=== PATIENT | female | born 1935 | race Caucasian/White ===

== ENCOUNTER 2016-12-07 19:44 | Inpatient (IN) | payer MEDICARE ==
[2016-12-07] MEDS ORDERED: ACETAMINOPHEN IV (For NPO) 1,000 MG in EMPTY BAG 1 BAG IVPB STA (20:14)
[2016-12-07] MEDS: SODIUM CHLORIDE 0.9% 500 ML IV SCH ×3 (20:15→21:15)
--- NOTE | 2016-12-07 20:42 | ED ---
Altered Mental Status HPI <Slim Gamboa - Last Filed: 12/07/16 21:55> - General Source: family, EMS, RN notes reviewed Mode of arrival: EMS Limitations: altered mental status, physical limitation <Raul Barney - Last Filed: 12/07/16 22:01> - General Stated Complaint: Possible Sepsis Time Seen by Provider: 12/07/16 19:59 - History of Present Illness Initial Comments: This an 81-year-old female presents emergency Department from [facility] for possible sepsis. Patient was sent here for concerns of fever, possible UTI. Patient has had a fever with foul odor urine. Patient's history is limited as she is in some/dementia patient. Patient is nonverbal. Patient does have a history of seizures, Parkinson's, hyperlipidemia, hypertension, CHF , CAD. Patient has not had any recent Tylenol Motrin. Patient does have a history of A. fib and is normally in A. fib. (Raul Barney) - Related Data Home Medications Medication Instructions Recorded Confirmed Carbidopa-Levodopa 25-100 mg 1 tab PO TID@0800,1399,199902/21/14 12/07/16 [Sinemet 25-100 mg] Levothyroxine Sodium [Synthroid] 50 mcg PO DAILY@00 02/21/14 12/07/16 Phenytoin Sodium Extended 100 mg PO BID@799,199902/21/14 12/07/16 [Dilantin] Polyethylene Glycol 3350 [Miralax] 17 gm PO Q72H PRN 02/21/14 12/07/16 Sennosides/Docusate Sodium 1 tab PO DAILY@0800 02/21/14 12/07/16 [Docusate Sodium-Senna Tablet] traZODone HCL [Desyrel] 50 mg PO HS@199902/21/14 12/07/16 Lisinopril [Zestril] 10 mg PO DAILY@0800 07/08/14 12/07/16 Docusate [Colace] 100 mg PO BID@08,199903/24/15 12/07/16 Famotidine [Pepcid] 20 mg PO DAILY@0800 03/24/15 12/07/16 LORazepam [Ativan] 1 mg PO BID PRN 03/24/15 12/07/16 Magnesium Hydroxide [Milk of 7,200 mg PO DAILY PRN 03/24/15 12/07/16 Magnesia Concentrate] Metoprolol Tartrate [Lopressor] 25 mg PO BID@0800,2000 03/24/15 12/07/16 Phenytoin Chew [Dilantin Chew] 50 mg PO DAILY@1400 04/04/15 12/07/16 Rivaroxaban [Xarelto] 15 mg PO DAILY@0800 04/04/15 12/07/16 Sm Tussin 100mg/5ml Liquid 200 mg PO Q4H PRN 04/04/15 12/07/16 Acetaminophen [Tylenol] 650 mg PO Q4H PRN 12/07/16 12/07/16 Divalproex Sodium [Divalproex 250 mg PO DAILY 12/07/16 12/07/16 Sodium ER] LORazepam [Ativan] 1.5 mg PO DAILY@0200 PRN 12/07/16 12/07/16 Megestrol Acetate 40mg/1ml 10 ml PO BID 12/07/16 12/07/16 Omeprazole 20 mg PO DAILY 12/07/16 12/07/16 Sertraline HCl [Zoloft] 100 mg PO DAILY 12/07/16 12/07/16 Allergies Allergy/AdvReac Type Severity Reaction Status Date / Time adhesive Allergy Unknown Verified 12/07/16 20:37 alprazolam [From Xanax] Allergy Unknown Verified 12/07/16 20:37 codeine Allergy Unknown Verified 12/07/16 20:37 Penicillins Allergy Unknown Verified 12/07/16 20:37 propoxyphene Allergy Unknown Verified 12/07/16 20:37 Sulfa (Sulfonamide Allergy Unknown Verified 12/07/16 20:37 Antibiotics) DIPHENYLHEPTANE Allergy Unknown Uncoded 12/07/16 20:37 NARCOTICS Allergy Unknown Uncoded 12/07/16 20:37 Review of Systems ROS Other: All systems not noted in ROS Statement are negative. <Slim Gamboa - Last Filed: 12/07/16 21:55> ROS Other: All systems not noted in ROS Statement are negative. <Raul Barney - Last Filed: 12/07/16 22:01> ROS Statement: Those systems with pertinent positive or pertinent negative responses have been documented in the HPI. Past Medical History Past Medical History: Atrial Fibrillation, Heart Failure, CVA/TIA, Dementia, GERD/Reflux, Hyperlipidemia, Hypertension, Osteoarthritis (OA), Thyroid Disorder Additional Past Medical History / Comment(s): PT CURRENTLY RESIDES AT [facility]. PT IS A POOR HISTORIAN AND UNABLE TO GIVE OWN MEDICAL HISTORY.HX OBTAINED FROM SON/DAUGHTER. 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 METABOLIC ENCEPHALOPATHY, OSTEOPOROSIS AND BRONCHIECTASIS.CONSTIPATION-TAKES STOOL SOFTENER-LAST BM (LARGE ON 8TH AND 9TH) , UTI 4-5-15 E-COLI, ARM FX AND CARMELITA HIP (HAD SX), pt had a stroke 2 yrs History of Any Multi-Drug Resistant Organisms: None Reported Past Surgical History: Appendectomy, Hysterectomy Additional Past Surgical History / Comment(s): BILATERAL EAR SURGERY, FAMILY NO SURE WHICH ARM HAS PLATE/SCREWS, CARMELITA HIP SX HAS METAL IN [place] Past Anesthesia/Blood Transfusion Reactions: No Reported Reaction Past Psychological History: Anxiety Smoking Status: Never smoker Past Alcohol Use History: None Reported Past Drug Use History: None Reported - Past Family History Father Family Medical History: Renal Disease Additional Family Medical History / Comment(s): FATHER OF RENAL DX. HE WAS ON DIALYSIS. Mother Family Medical History: Unable to Obtain, Liver Disease <Raul Barney - Last Filed: 12/07/16 22:01> General Exam Limitations: altered mental status, physical limitation General appearance: alert, in no apparent distress Head exam: Present: atraumatic, normocephalic, normal inspection ENT exam: Present: normal oropharynx Neck exam: Present: normal inspection. Absent: tenderness, meningismus, lymphadenopathy Respiratory exam: Present: decreased breath sounds. Absent: normal lung sounds bilaterally, respiratory distress, wheezes, rales, rhonchi, stridor Cardiovascular Exam: Present: tachycardia, irregular rhythm, normal heart sounds. Absent: normal rhythm, systolic murmur, diastolic murmur, rubs, gallop , clicks GI/Abdominal exam: Present: soft, normal bowel sounds. Absent: distended, tenderness, guarding, rebound, rigid Neurological exam: Present: alert. Absent: oriented X3 Skin exam: Present: warm, dry, intact, normal color. Absent: rash <Raul Barney - Last Filed: 12/07/16 22:01> Course <Slim Gamboa - Last Filed: 12/07/16 21:55> <Raul Barney - Last Filed: 12/07/16 22:01> Vital Signs 12/07/16 12/07/16 12/07/16 19:50 20:15 20:51 Temperature 101.7 F H Pulse Rate 133 H 142 H Pulse Rate [ 142 H Turbine Mechanic ] Respiratory 16 20 Rate Blood Pressure 156/65 145/70 O2 Sat by Pulse 88 L 92 L Oximetry 12/07/16 21:54 Temperature 100.6 F H Pulse Rate 92 Pulse Rate [ Turbine Mechanic ] Respiratory 20 Rate Blood Pressure 105/67 O2 Sat by Pulse 96 Oximetry - Reevaluation(s) Reevaluation #1: 12/07/16 20:42 Family did presents emergency Department and states that they do not want extreme measures with the patient that she is a no code and wanted comfort measures. (Raul Barney) Medical Decision Making - Lab Data Result diagrams: 12/07/16 20:10 12/07/16 20:10 <Slim Gamboa - Last Filed: 12/07/16 21:55> - Lab Data Result diagrams: 12/07/16 20:10 12/07/16 20:10 <Raul Barney - Last Filed: 12/07/16 22:01> - Medical Decision Making Medical decision making; patient's multiple medical problems. The patient was brought emergency room today because of a fever, 11.7. The patient has not been communicative since a stroke. Daughter at bedside states the patient is a no code. Vital signs today found temperature 11.7 pulse elevated 142 respiratory rate 20 pulse ox 92% on 2 L nasal cannula. Her blood pressure 145/ 70. Labs show white count of 22 hemoglobin 12 hematocrit 37 with an INR 1.1. Potassium 4.9 renal insufficiency with a BUN of 36 creatinine 1.3 and a GFR of 39. Plasma lactic acid elevated 3.2. Patient received 1/2 L of IV normal saline for A. fib with RVR of 140 as well as Tylenol heart rate stayed up the patient's receiving Cardizem 10 with IV drip to follow. The daughter at bedside confirm that her mother is a no code comfort only and treat the and once as presented. I discussed the case with Dr. Vines on-call for Dr. De Leon. Patient be admitted to Dr. De Leon's service. The patient will be admitted to the selective service. Dr. Gamboa (Slim Gamboa) - Lab Data Lab Results 12/07/16 12/07/16 12/07/16 Range/Units 20:10 20:10 20:10 WBC 22.3 H (3.8-10.6) k/uL RBC 3.75 L (3.80-5.40) m/uL Hgb 12.1 (11.4-16.0) gm/dL Hct 37.3 (34.0-46.0) % MCV 99.5 (80.0-100.0) fL MCH 32.2 (25.0-35.0) pg MCHC 32.3 (31.0-37.0) g/dL RDW 13.4 (11.5-15.5) % Plt Count 321 (150-450) k/uL Neutrophils % 92 % Lymphocytes % 3 % Monocytes % 4 % Eosinophils % 0 % Basophils % 0 % Neutrophils # 20.6 H (1.3-7.7) k/uL Lymphocytes # 0.7 L (1.0-4.8) k/uL Monocytes # 0.9 (0-1.0) k/uL Eosinophils # 0.0 (0-0.7) k/uL Basophils # 0.0 (0-0.2) k/uL PT (9.0-12.0) sec INR (<1.2) APTT (22.0-30.0) sec Sodium 146 H (137-145) mmol/L Potassium 4.9 (3.5-5.1) mmol/L Chloride 111 H (98-107) mmol/L Carbon Dioxide 23 (22-30) mmol/L Anion Gap 12 mmol/L BUN 36 H (7-17) mg/dL Creatinine 1.30 H (0.52-1.04) mg/dL Est GFR (MDRD) Af Amer 48 (>60 ml/min/1.73 sqM) Est GFR (MDRD) Non-Af 39 (>60 ml/min/1.73 sqM) Glucose 127 H (74-99) mg/dL Plasma Lactic Acid [place] (0.7-2.0) mmol/L Calcium 9.1 (8.4-10.2) mg/dL Total Bilirubin 0.6 (0.2-1.3) mg/dL AST 40 H (14-36) U/L ALT 31 (9-52) U/L Alkaline Phosphatase 87 (38-126) U/L Total Creatine Kinase 176 H (30-135) U/L CK-MB (CK-2) 2.3 (0.0-2.4) ng/mL CK-MB (CK-2) Rel Index 1.3 Troponin I 0.036 H* (0.000-0.034) ng/mL Total Protein 6.8 (6.3-8.2) g/dL Albumin 3.9 (3.5-5.0) g/dL Urine Color Urine Appearance (Clear) Urine pH (5.0-8.0) Ur Specific [place] (1.001-1.035) Urine Protein (Negative) Urine Glucose (UA) (Negative) Urine Ketones (Negative) Urine Blood (Negative) Urine Nitrite (Negative) Urine Bilirubin (Negative) Urine Urobilinogen (<2.0) mg/dL Ur Leukocyte Esterase (Negative) Urine RBC (0-5) /hpf Urine WBC (0-5) /hpf Urine WBC Clumps (None) /hpf Urine Bacteria (None) /hpf Urine Mucus (None) /hpf Phenytoin 8.6 ug/mL Valproic Acid 13.7 ug/mL 12/07/16 12/07/16 12/07/16 Range/Units 20:10 20:10 20:15 WBC (3.8-10.6) k/uL RBC (3.80-5.40) m/uL Hgb (11.4-16.0) gm/dL Hct (34.0-46.0) % MCV (80.0-100.0) fL MCH (25.0-35.0) pg MCHC (31.0-37.0) g/dL RDW (11.5-15.5) % Plt Count (150-450) k/uL Neutrophils % % Lymphocytes % % Monocytes % % Eosinophils % % Basophils % % Neutrophils # (1.3-7.7) k/uL Lymphocytes # (1.0-4.8) k/uL Monocytes # (0-1.0) k/uL Eosinophils # (0-0.7) k/uL Basophils # (0-0.2) k/uL PT 10.8 (9.0-12.0) sec INR 1.1 (<1.2) APTT 21.1 L (22.0-30.0) sec Sodium (137-145) mmol/L Potassium (3.5-5.1) mmol/L Chloride (98-107) mmol/L Carbon Dioxide (22-30) mmol/L Anion Gap mmol/L BUN (7-17) mg/dL Creatinine (0.52-1.04) mg/dL Est GFR (MDRD) Af Amer (>60 ml/min/1.73 sqM) Est GFR (MDRD) Non-Af (>60 ml/min/1.73 sqM) Glucose (74-99) mg/dL Plasma Lactic Acid Byron 3.2 H* (0.7-2.0) mmol/L Calcium (8.4-10.2) mg/dL Total Bilirubin (0.2-1.3) mg/dL AST (14-36) U/L ALT (9-52) U/L Alkaline Phosphatase (38-126) U/L Total Creatine Kinase (30-135) U/L CK-MB (CK-2) (0.0-2.4) ng/mL CK-MB (CK-2) Rel Index Troponin I (0.000-0.034) ng/mL Total Protein (6.3-8.2) g/dL Albumin (3.5-5.0) g/dL Urine Color Dark Yellow Urine Appearance Turbid H (Clear) Urine pH 5.5 (5.0-8.0) Ur Specific [place] 1.020 (1.001-1.035) Urine Protein 2+ H (Negative) Urine Glucose (UA) Negative (Negative) Urine Ketones Trace H (Negative) Urine Blood Small H (Negative) Urine Nitrite Negative (Negative) Urine Bilirubin Negative (Negative) Urine Urobilinogen 2.0 (<2.0) mg/dL Ur Leukocyte Esterase Large H (Negative) Urine RBC 30 H (0-5) /hpf Urine WBC >182 H (0-5) /hpf Urine WBC Clumps Many H (None) /hpf Urine Bacteria Occasional H (None) /hpf Urine Mucus Many H (None) /hpf Phenytoin ug/mL Valproic Acid ug/mL 12/07/16 21:01 EKG performed at 20:20 4H or fibrillation with RVR, left axis deviation rate of 134 QRS duration 72 QT/QTC 312/465 (Raul Barney) Disposition <Slim Gamboa - Last Filed: 12/07/16 21:55> <Raul Barney - Last Filed: 12/07/16 22:01> Clinical Impression: UTI (urinary tract infection), Sepsis, Atrial fibrillation with RVR, Dementia, Dehydration Disposition: ADMITTED IP TO THIS HOSP Condition: Fair Referrals: Filiberto De Leon MD [Primary Care Provider] - 1-2 days
[2016-12-07 20:50] LABS: Basophils % (A) 0 %; CH 32.7; Eosinophils % (A) 0 %; HCT 37.3 % (34.0-46.0); HDW 2.06; HGB 12.1 gm/dL (11.4-16.0); Luc % (Auto) 1; Lymphocytes # (A) 0.7 k/uL (1.0-4.8); Lymphocytes % (A) 3 %; MCH 32.2 pg (25.0-35.0); MCHC 32.3 g/dL (31.0-37.0); MCV 99.5 fL (80.0-100.0); Mean Platelet Volume 8.2; Monocytes # (A) 0.9 k/uL (0-1.0); Monocytes % (A) 4 %; Neutrophils # (A) 20.6 k/uL (1.3-7.7); Neutrophils % (A) 92 %; RBC 3.75 m/uL (3.80-5.40); RDW 13.4 % (11.5-15.5); WBC 22.3 k/uL (3.8-10.6); WBC (Perox) 22.73
[2016-12-07 20:54] LABS: Appearance,Urine Turbid (Clear); Bacteria,Urine Occasional /hpf; Bilirubin,Urine Negative (Negative); Glucose,Urine (UA) Negative (Negative); Ketones,Urine Trace (Negative); Leukocyte Esterase,Urine Large (Negative); Mucus,Urine Many /hpf; Nitrite,Urine Negative (Negative); PH, Urine 5.5 (5.0-8.0); Particle Count 53086; Protein,Urine 2+ (Negative); RBC,Urine 30 /hpf (0-5); UA Billing (MACRO vs. MICRO) MICRO; WBC,Urine >182 /hpf (0-5)
[2016-12-07] MEDS ORDERED: LEVOFLOXACIN 750MG-D5W PMX 750 MG in DEXTROSE/WATER 1 150ML.BAG IVPB STA (20:59)
[2016-12-07 21:00] LABS: Calcium 9.1 mg/dL (8.4-10.2); INR 1.1 (<1.2); Potassium 4.9 mmol/L (3.5-5.1); Prothrombin Time 10.8 sec (9.0-12.0); Total Bilirubin 0.6 mg/dL (0.2-1.3); Total Protein 6.8 g/dL (6.3-8.2)
[2016-12-07 21:16] LABS: Partial Thromboplastin Time 21.1 sec (22.0-30.0)
[2016-12-07] MEDS ORDERED: DILTIAZEM 5 MG/ML 5 ML VIAL IVP STA (21:25)
[2016-12-07 21:30] LABS: Creatine Kinase MB 2.3 ng/mL (0.0-2.4)
--- NOTE | 2016-12-07 21:41 | XR ---
EXAMINATION TYPE: XR chest 2V DATE OF EXAM: 12/07/2016 COMPARISON: NONE INDICATION: Fever TECHNIQUE: Frontal and lateral views of the chest are obtained. FINDINGS: The heart size is normal. The pulmonary vasculature is normal. There is some mild increased lung markings which appear diffuse and nonspecific. A suspicious focal c onsolidation is not identified.. Previous left pleural effusion is resolved. IMPRESSION: 1. Mild increased lung markings may be chronic in nature. No suspicious acute changes evident
[2016-12-07 21:42] LABS: Troponin I 0.036 ng/mL (0.000-0.034)
[2016-12-07] MEDS ORDERED: NALOXONE 0.4 MG/ML 1 ML VIAL IV PRN (22:02)
[2016-12-07] MEDS ORDERED: POLYETHYLENE GLYCOL 3350 17 GM POWD.PACK PO PRN (22:03)
[2016-12-07] MEDS ORDERED: LORazepam 1 MG TAB PO PRN (22:03)
[2016-12-07] MEDS ORDERED: MAGNESIUM HYDROXIDE 2,400 MG/10 ML CUP PO PRN (22:03)
[2016-12-07] MEDS: SODIUM CHLORIDE 0.9% 1,000 ML IV SCH (23:53)
[2016-12-08] MEDS ORDERED: LORazepam 1 MG TAB PO PRN (02:00)
[2016-12-08] MEDS: PANTOPRAZOLE 40 MG TABLET PO SCH (06:28)
[2016-12-08] MEDS ORDERED: METOPROLOL TARTRATE 25 MG TAB PO SCH (08:00)
[2016-12-08] MEDS: CARBIDOPA-LEVODOPA 25-100 MG 1 EACH TAB PO SCH ×3 (09:36→21:44)
[2016-12-08] MEDS: PHENYTOIN SODIUM EXTENDED 100 MG CAP PO SCH ×2 (09:37→21:44)
[2016-12-08] MEDS: SERTRALINE 100 MG TAB PO SCH (09:37)
[2016-12-08] MEDS: RIVAROXABAN 15 MG TAB PO SCH (09:37)
[2016-12-08] MEDS: LISINOPRIL 10 MG TAB PO SCH (09:37)
[2016-12-08] MEDS: FAMOTIDINE 20 MG TAB PO SCH (09:37)
[2016-12-08] MEDS: SENNOSIDES-DOCUSATE SODIUM 1 EACH TAB PO SCH (09:38)
[2016-12-08] MEDS: MEGESTROL 400 MG/10 ML CUP PO SCH ×2 (09:38→21:44)
[2016-12-08] MEDS: LEVOTHYROXINE 50 MCG TAB PO SCH (09:38)
[2016-12-08] MEDS: DOCUSATE 100 MG CAP PO SCH ×2 (09:39→21:44)
[2016-12-08] MEDS: DIVALPROEX ER 250 MG TAB.ER.24H PO SCH (09:39)
--- NOTE | 2016-12-08 09:40 | P.HPIM ---
History of Present Illness Chief complaint: Altered mental status History of present illness: The patient is a 81-year-old patient who resides [facility] a [facility]. The patient is a patient of Dr. De Leon for whom I am covering. Apparently the patient has had decreasing mental status with apparent more lethargy and decreased responsiveness. And also patient apparently was having temperature and a cloudy foul-smelling urine. Past medical history: Patient apparently has been living in an adult foster penit[facility]iary since a previous stroke. History of atrial fibrillation Dementia Parkinson's disease Hypertension Hypothyroidism Degenerative joint disease Congestive heart failure Gastroesophageal reflux Previous surgeries from her record include appendectomy and hysterectomy along with bilateral ear surgery, bilateral hip surgeries ALLERGIES/adverse reactions: Penicillins and sulfa medications. Codeine and narcotics Adhesive this Xanax Propoxyphene Diphenylheptane Medications: Please refer to list. Carbidopa-levodopa 25-103 times daily Levothyroxine 50 g daily Dilantin 100 mg twice a day MiraLAX 17 g every 3 days as needed Senna stool softener 1 daily Trazodone 50 mg at at bedtime Lisinopril 10 mg daily Colace 100 mg twice a day Pepcid 20 mg daily Ativan 1 mg by mouth when necessary agitation Milk of magnesia daily if needed Lopressor 25 mg twice a day Dilantin 250 mg at 2:00 daily Xarelto 50 mg daily Acetaminophen when necessary Divalproex 250 mg daily Megace 10 mL twice a day Omeprazole 20 mg daily Zoloft 100 mg daily Review of systems: Unobtainable except for history of present illness as patient is nonverbal Family history: From records father of renal disease on dialysis and mother had liver disease. Social history: Once again patient resides in an adult foster penit[facility] locally. Apparently she has never smoked. Physical examination: Axillary temperature was as high as 98 and presently 97.7. Pulse on presentation was irregular and 130 per her EKG and presently 118. Respirations are 16. Blood pressure was as low as 97/52 and now 108/59. She is 100% saturated on 2 L nasal cannula. Patient is nonverbal. She does not appear to be generally aware of things. Head is atraumatic. Neck is generally supple. No carotid bruits or adenopathy palpable. She will not open her eyes to evaluate extraocular movements. Lungs are generally clear. Heart tones are irregularly irregular and slightly tachycardic. No definite murmurs or rubs appreciated. Abdomen is generally soft although she does seem to have some suprapubic discomfort to palpation. No definite masses or organomegaly detected. Extremities revealed no bruising. No edema. No definite palpable breast lesions. Pelvic is deferred. She does have a indwelling Alfaro catheter in place. Patient does not appear to be in any distress. She does appear to have some right-sided facial weakness. She does respond to painful stimuli. Her right arm is in a splint for her IV axis. She does have movement of her right wrist and left arm. Both lower extremities seemed to show increased tone. Plantars were downgoing. Withdrawal reflex present bilaterally. Laboratory results White count elevated at 22.3 with a hemoglobin 12.1 and a platelet count 321. Left shift present with 20.6 neutrophils INR was 1.1 with a PTT of 21.1. Sodium is 146 with a potassium 4.9 and chloride 111 and CO2 content of 23. BUN was 36 with a creatinine 1.3 giving her GFR 39. A blood sugar was 127. A venous lactic acid level initially 3.2 has decreased down to 2.6 CPK was 176 with a troponin of 0.036. Albumin was 3.9. Urinalysis revealed a large amount of leukocyte esterase and greater than 182 white cells with 30 RBCs. Dilantin level was 8.6 with valproic acid 13.7. EKG showing atrial fibrillation with a rapid ventricular response of 134. Left axis deviation and likely septal infarct but no definite acute ischemic changes noted. Chest x-ray showed some increased lung markings which were felt to be chronic in nature without suspicious acute change present. Impressions: 1. This 81-year-old female with a change in mental status with underlying urinary tract infection and likely sepsis and some systemic inflammatory response syndrome resulting in lactic acidosis and acute renal failure stage III. 2. Chronic atrial fibrillation but presenting now with rapid ventricular response likely related to sepsis. 3. Elevated CK and troponin likely related to the sepsis and atrial fibrillation along with the associated renal failure. 4. This patient has underlying neurologic and mental status problems with history of old CVA, dementia, Parkinson disease. 5. Hypertension 6. Hypothyroidism 7. Degenerative joint disease 8. History of congestive heart failure from the record. 9. Previous surgeries as stated in the past medical history. Plans: As discussed with the emergency room physician apparently patient has a poor baseline status. Family wants patient to be a no code, no CPR with no heroic measures. In light of her ALLERGIES she's been placed on Levaquin for her urinary tract infection and is being monitored on selective care. We will increase her metoprolol to hopefully control her atrial fibrillation rate better. We will continue her other baseline medications for her comorbidities and continue with hydration. Awaiting results of her urine cultures which are in process. Overall prognosis is poor in light of the seriousness of her presentation and multiple comorbidities as listed above. Follow-up labs have been ordered for the morning along with thyroid, TSH. Past Medical History Past Medical History: Atrial Fibrillation, Heart Failure, CVA/TIA, Dementia, GERD/Reflux, Hyperlipidemia, Hypertension, Osteoarthritis (OA), Thyroid Disorder Additional Past Medical History / Comment(s): PT CURRENTLY RESIDES AT [facility]. PT IS A POOR HISTORIAN AND UNABLE TO GIVE OWN MEDICAL HISTORY.HX OBTAINED FROM SON/DAUGHTER. 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 METABOLIC ENCEPHALOPATHY, OSTEOPOROSIS AND BRONCHIECTASIS, ARM FX AND CARMELITA HIP (HAD SX) History of Any Multi-Drug Resistant Organisms: None Reported Past Surgical History: Appendectomy, Hysterectomy Additional Past Surgical History / Comment(s): BILATERAL EAR SURGERY, RIGHT ARM HAS PLATE/SCREWS, CARMELITA HIP SX HAS METAL IN PLACE Past Anesthesia/Blood Transfusion Reactions: No Reported Reaction Past Psychological History: Anxiety Additional Psychological History / Comment(s): PT LIVES AT [facility]. SINCE STROKE UNABLE TO AMBULATE BUT FAMILY STATES SHE IS A WIGGLER (WILL PULL OUT IVS AND FALL OUT OF BED).PT IS A FEEDER,NO LONGER READS OR WRITES AND IS INCONT WEARS A BRIEF-ON RISK SCREEN UNABLE TO OBTAIN INFO FROM PT TO DEPRESSION. HER HEALTH POA IS [facility] AT [phone] IS HER [facility]AY[facility]. Smoking Status: Never smoker Past Alcohol Use History: None Reported Past Drug Use History: None Reported - Past Family History Father Family Medical History: Renal Disease Additional Family Medical History / Comment(s): FATHER OF RENAL DX. HE WAS ON DIALYSIS. Mother Family Medical History: Cancer, Liver Disease Medications and Allergies Home Medications Medication Instructions Recorded Confirmed Type Carbidopa-Levodopa 25-100 mg 1 tab PO TID@0800,1400,199902/21/1426/17 History [Sinemet 25-100 mg] Levothyroxine Sodium [Synthroid] 50 mcg PO DAILY@0800 02/21/14 12/07/16 History Phenytoin Sodium Extended 100 mg PO BID@799,199902/21/14 12/07/16 History [Dilantin] Polyethylene Glycol 3350 [Miralax] 17 gm PO Q72H PRN 02/21/14 12/07/16 History Sennosides/Docusate Sodium 1 tab PO DAILY@0802/21/14 12/07/16 History [Docusate Sodium-Senna Tablet] traZODone HCL [Desyrel] 50 mg PO HS@199902/21/14 12/07/16 History Lisinopril [Zestril] 10 mg PO DAILY@0807/08/14 12/07/16 History Docusate [Colace] 100 mg PO BID@799,199903/24/15 12/07/16 History Famotidine [Pepcid] 20 mg PO DAILY@0803/24/15 12/07/16 History LORazepam [Ativan] 1 mg PO BID PRN 03/24/15 12/07/16 History Magnesium Hydroxide [Milk of 7,200 mg PO DAILY PRN 03/24/15 12/07/16 History Magnesia Concentrate] Metoprolol Tartrate [Lopressor] 25 mg PO BID@08,199903/24/15 12/07/16 History Phenytoin Chew [Dilantin Chew] 50 mg PO DAILY@1400 04/04/15 12/07/16 History Rivaroxaban [Xarelto] 15 mg PO DAILY@0800 04/04/15 12/07/16 History Sm Tussin 100mg/5ml Liquid 200 mg PO Q4H PRN 04/04/15 12/07/16 History Acetaminophen [Tylenol] 650 mg PO Q4H PRN 12/07/16 12/07/16 History Divalproex Sodium [Divalproex 250 mg PO DAILY 12/07/16 12/07/16 History Sodium ER] LORazepam [Ativan] 1.5 mg PO DAILY@0200 PRN 12/07/16 12/07/16 History Megestrol Acetate 40mg/1ml 10 ml PO BID 12/07/16 12/07/16 History Omeprazole 20 mg PO DAILY 12/07/16 12/07/16 History Sertraline HCl [Zoloft] 100 mg PO DAILY 12/07/16 12/07/16 History Allergies Allergy/AdvReac Type Severity Reaction Status Date / Time adhesive Allergy Unknown Verified 12/07/16 20:37 alprazolam [From Xanax] Allergy Unknown Verified 12/07/16 20:37 codeine Allergy Unknown Verified 12/07/16 20:37 Penicillins Allergy Unknown Verified 12/07/16 20:37 propoxyphene Allergy Unknown Verified 12/07/16 20:37 Sulfa (Sulfonamide Allergy Unknown Verified 12/07/16 20:37 Antibiotics) DIPHENYLHEPTANE Allergy Unknown Uncoded 12/07/16 20:37 NARCOTICS Allergy Unknown Uncoded 12/07/16 20:37 Physical Exam Vitals: Vital Signs Temp Pulse Pulse Pulse Resp BP BP 12/08/16 04:00 97.7 F 118 H 16 108/59 12/07/16 22:58 98.0 F 109 H 16 12/07/16 22:50 98.0 F 109 H 16 97/52 12/07/16 22:39 99.9 F H 99 20 105/56 12/07/16 22:01 83 20 116/53 12/07/16 21:54 100.6 F H 92 20 105/67 12/07/16 21:25 136 H 20 120/59 12/07/16 20:55 138 H 20 128/78 12/07/16 20:51 142 H 12/07/16 20:15 142 H 20 145/70 12/07/16 19:50 101.7 F H 133 H 16 156/65 Pulse Ox 12/08/16 04:00 100 12/07/16 22:58 94 L 12/07/16 22:50 94 L 12/07/16 22:39 99 12/07/16 22:01 99 12/07/16 21:54 96 12/07/16 21:25 95 12/07/16 20:55 97 12/07/16 20:51 12/07/16 20:15 92 L 12/07/16 19:50 88 L Intake and Output 12/07/16 12/08/16 12/08/16 22:59 06:59 14:59 Output Total 100 Balance -100 Output: Urine 100 Other: Weight 46.266 kg Results CBC & Chem 7: 12/07/16 20:10 12/07/16 20:10 Labs: Abnormal Lab Results - Last 24 Hours (Table) 12/07/16 12/07/16 12/07/16 Range/Units 20:10 20:10 20:10 WBC 22.3 H (3.8-10.6) k/uL RBC 3.75 L (3.80-5.40) m/uL Neutrophils # 20.6 H (1.3-7.7) k/uL Lymphocytes # 0.7 L (1.0-4.8) k/uL APTT (22.0-30.0) sec Sodium 146 H (137-145) mmol/L Chloride 111 H (98-107) mmol/L BUN 36 H (7-17) mg/dL Creatinine 1.30 H (0.52-1.04) mg/dL Glucose 127 H (74-99) mg/dL Plasma Lactic Acid Byron (0.7-2.0) mmol/L AST 40 H (14-36) U/L Total Creatine Kinase 176 H (30-135) U/L Troponin I 0.036 H* (0.000-0.034) ng/mL Urine Appearance (Clear) Urine Protein (Negative) Urine Ketones (Negative) Urine Blood (Negative) Ur Leukocyte Esterase (Negative) Urine RBC (0-5) /hpf Urine WBC (0-5) /hpf Urine WBC Clumps (None) /hpf Urine Bacteria (None) /hpf Urine Mucus (None) /hpf 12/07/16 12/07/16 12/07/16 Range/Units 20:10 20:10 20:15 WBC (3.8-10.6) k/uL RBC (3.80-5.40) m/uL Neutrophils # (1.3-7.7) k/uL Lymphocytes # (1.0-4.8) k/uL APTT 21.1 L (22.0-30.0) sec Sodium (137-145) mmol/L Chloride (98-107) mmol/L BUN (7-17) mg/dL Creatinine (0.52-1.04) mg/dL Glucose (74-99) mg/dL Plasma Lactic Acid Byron 3.2 H* (0.7-2.0) mmol/L AST (14-36) U/L Total Creatine Kinase (30-135) U/L Troponin I (0.000-0.034) ng/mL Urine Appearance Turbid H (Clear) Urine Protein 2+ H (Negative) Urine Ketones Trace H (Negative) Urine Blood Small H (Negative) Ur Leukocyte Esterase Large H (Negative) Urine RBC 30 H (0-5) /hpf Urine WBC >182 H (0-5) /hpf Urine WBC Clumps Many H (None) /hpf Urine Bacteria Occasional H (None) /hpf Urine Mucus Many H (None) /hpf 12/07/16 Range/Units 23:50 WBC (3.8-10.6) k/uL RBC (3.80-5.40) m/uL Neutrophils # (1.3-7.7) k/uL Lymphocytes # (1.0-4.8) k/uL APTT (22.0-30.0) sec Sodium (137-145) mmol/L Chloride (98-107) mmol/L BUN (7-17) mg/dL Creatinine (0.52-1.04) mg/dL Glucose (74-99) mg/dL Plasma Lactic Acid Byron 2.6 H* (0.7-2.0) mmol/L AST (14-36) U/L Total Creatine Kinase (30-135) U/L Troponin I (0.000-0.034) ng/mL Urine Appearance (Clear) Urine Protein (Negative) Urine Ketones (Negative) Urine Blood (Negative) Ur Leukocyte Esterase (Negative) Urine RBC (0-5) /hpf Urine WBC (0-5) /hpf Urine WBC Clumps (None) /hpf Urine Bacteria (None) /hpf Urine Mucus (None) /hpf Microbiology - Last 24 Hours (Table) 12/07/16 20:15 Urine Culture - Preliminary Urine,Clean Catch Thrombosis Risk Factor Assmnt - Choose All That Apply Each Risk Factor Represents 3 Points: Age 75 years or older Thrombosis Risk Factor Assessment Total Risk Factor Score: 3 Thrombosis Risk Factor Assessment Level: Moderate Risk
[2016-12-08] MEDS: METOPROLOL TARTRATE 50 MG TAB PO SCH ×2 (10:30→21:44)
[2016-12-08] MEDS: SODIUM CHLORIDE 0.9% 1,000 ML IV SCH ×2 (15:24→23:14)
[2016-12-08] MEDS: PHENYTOIN 50 MG CHEWABLE PO SCH (15:25)
[2016-12-08] MEDS: traZODone HCL 50 MG TAB PO SCH (21:44)
[2016-12-08] MEDS: LEVOFLOXACIN 500MG-D5W PMX 500 MG in DEXTROSE/WATER 1 100ML.BAG IVPB SCH (21:59)
[2016-12-09 06:57] LABS: Anion Gap 8 mmol/L; Blood Urea Nitrogen 26 mg/dL (7-17); Carbon Dioxide 19 mmol/L (22-30); Chloride 118 mmol/L (98-107); Glucose 85 mg/dL (74-99); Non-African American GFR(MDRD) >60 (>60 ml/min/1.73 sqM); Sodium 145 mmol/L (137-145)
[2016-12-09] MEDS: MEGESTROL 400 MG/10 ML CUP PO SCH ×2 (07:03→17:30)
[2016-12-09] MEDS: PANTOPRAZOLE 40 MG TABLET PO SCH (07:04)
[2016-12-09 07:42] LABS: Basophils % (A) 0 %; CHCM 30.1; Eosinophils % (A) 0 %; HCT 33.4 % (34.0-46.0); HDW 2.04; HGB 10.6 gm/dL (11.4-16.0); Hypochromasia Moderate; Luc # (Auto) 0.19; Luc % (Auto) 1; Lymphocytes # (A) 1.4 k/uL (1.0-4.8); Lymphocytes % (A) 10 %; MCH 32.7 pg (25.0-35.0); MCHC 31.7 g/dL (31.0-37.0); MCV 103.3 fL (80.0-100.0); Macrocytosis Slight; Mean Platelet Volume 8.8; Monocytes # (A) 0.8 k/uL (0-1.0); Monocytes % (A) 6 %; Neutrophils % (A) 82 %; RBC 3.23 m/uL (3.80-5.40); RDW 12.9 % (11.5-15.5); WBC 13.4 k/uL (3.8-10.6)
[2016-12-09] MEDS: RIVAROXABAN 15 MG TAB PO SCH (09:24)
[2016-12-09] MEDS: PHENYTOIN SODIUM EXTENDED 100 MG CAP PO SCH ×2 (09:24→22:48)
[2016-12-09] MEDS: METOPROLOL TARTRATE 50 MG TAB PO SCH ×2 (09:24→22:48)
[2016-12-09] MEDS: CARBIDOPA-LEVODOPA 25-100 MG 1 EACH TAB PO SCH ×3 (09:25→22:48)
[2016-12-09] MEDS: DIVALPROEX ER 250 MG TAB.ER.24H PO SCH (09:25)
[2016-12-09] MEDS: LEVOTHYROXINE 50 MCG TAB PO SCH ×2 (09:34→10:52)
[2016-12-09] MEDS: SERTRALINE 100 MG TAB PO SCH ×2 (09:35→10:53)
[2016-12-09] MEDS: SENNOSIDES-DOCUSATE SODIUM 1 EACH TAB PO SCH ×2 (09:36→10:53)
[2016-12-09] MEDS: FAMOTIDINE 20 MG TAB PO SCH (09:36)
[2016-12-09] MEDS: DOCUSATE 100 MG CAP PO SCH ×3 (09:36→22:48)
[2016-12-09] MEDS: SODIUM CHLORIDE 0.9% 1,000 ML IV SCH ×2 (09:40→21:45)
[2016-12-09] MEDS: LISINOPRIL 10 MG TAB PO SCH (10:53)
[2016-12-09] MEDS ORDERED: ARTIFICIAL TEARS-HYPROMELLOSE DROPS 15 ML BTL BOTH EYES PRN (13:43)
[2016-12-09] MEDS: PANTOPRAZOLE 40 MG/10 ML VIAL IVP SCH (15:57)
[2016-12-09] MEDS: DIGOXIN 250 MCG/ML 2 ML AMP IVP SCH (15:58)
--- NOTE | 2016-12-09 16:22 | CDI ---
In responding to this query, please exercise your independent professional judgment. The [facility] Coding Staff and Clinical Documentation Specialists appreciate your assistance in clarifying documentation, maintaining compliance with coding guidelines, accurately documenting patients condition and capturing severity of illness. The fact that a question is asked does not imply that any particular answer is desired or expected. Communication forms are a method of clarifying documentation and are not made part of the Legal Health Record. Thank you in advance for your clarification. Last Revision, June 2015 Cherri Boswell [address] [facility] [place] [address] Documentation Clarification Form Date: 12/09/2016 3:58:00 PM From: Angella Mims Admit Date: 12/07/2016 10:27:00 PM Patient Name: Bri Ramos Visit Number: [id number] Dr. Filiberto De Leon Altered mental status was documented in the H&P. Patient history/risk factors: Atrial Fibrillation, Parkinsons disease, CHF Clinical Indicators: 12/08/16 H&P:"81-year-old female with a change in mental status with underlying urinary tract infection and likely sepsis and some systemic inflammatory response syndrome resulting in lactic acidosis and acute renal failure stage III. " Labs: WBC 22.3/13.4, Neutrophils 20.6/11, BUN 36/1.3, plasma LA 2.6, t CK 176, Troponin 0.36 U/A: turbid, +2 protein, trace keytones, large leukocyte esterase, 30 RBC, >182 , many WBC clumps, occasional bacterial, many mucus, CX gram neg bacilli CXR: mild increased lung marking may be chronic in nature. Treatment: TX: IVF IV Levaquin 750 mg IVPB In your professional opinion, please clarify the etiology of the altered mental status, if known. Encephalopathy (specify Type and Underlying Medical Illness-metabolic, toxic , anoxic, etc.) Dementia (if know, specify Type and if with/without Behavioral Disturbance) Other condition (please specify) Unable to determine Please document in your progress notes and discharge summary in order to capture severity of illness and risk of mortality. Include clinical findings that support your diagnosis. FYI: Press F11 to launch patient chart. Place X here if this finding has no clinical significance, is not applicable or if you are not able to provide any additional documentation. MTDD
[2016-12-09] MEDS: PHENYTOIN 50 MG CHEWABLE PO SCH (17:30)
[2016-12-09] MEDS ORDERED: ACETAMINOPHEN IVPB PRN (17:53)
[2016-12-09] MEDS: LEVOFLOXACIN 500MG-D5W PMX 500 MG in DEXTROSE/WATER 1 100ML.BAG IVPB SCH (21:45)
[2016-12-09] MEDS ORDERED: DIGOXIN 250 MCG/ML 2 ML AMP IVP ONE (22:11)
[2016-12-09] MEDS: traZODone HCL 50 MG TAB PO SCH (22:48)
[2016-12-10 06:38] LABS: CH 31.9; CHCM 32.7; HDW 2.21; HGB 10.2 gm/dL (11.4-16.0); MCH 32.3 pg (25.0-35.0); Mean Platelet Volume 8.8; RBC 3.17 m/uL (3.80-5.40); RDW 12.9 % (11.5-15.5); WBC 12.9 k/uL (3.8-10.6)
[2016-12-10 07:01] LABS: MCV 97.9 fL (80.0-100.0)
[2016-12-10 07:04] LABS: Anion Gap 6 mmol/L; Blood Urea Nitrogen 21 mg/dL (7-17); Calcium 7.9 mg/dL (8.4-10.2); Carbon Dioxide 20 mmol/L (22-30); Chloride 117 mmol/L (98-107); Glucose 79 mg/dL (74-99); Non-African American GFR(MDRD) >60 (>60 ml/min/1.73 sqM); Potassium 4.4 mmol/L (3.5-5.1); Sodium 143 mmol/L (137-145)
[2016-12-10] MEDS: MEGESTROL 400 MG/10 ML CUP PO SCH ×3 (07:04→16:21)
[2016-12-10] MEDS: CARBIDOPA-LEVODOPA 25-100 MG 1 EACH TAB PO SCH ×5 (08:34→19:59)
[2016-12-10] MEDS: PANTOPRAZOLE 40 MG/10 ML VIAL IVP SCH (08:34)
[2016-12-10] MEDS: DIGOXIN 250 MCG/ML 2 ML AMP IVP SCH (08:35)
[2016-12-10] MEDS: FAMOTIDINE 20 MG TAB PO SCH (08:35)
[2016-12-10] MEDS: SERTRALINE 100 MG TAB PO SCH (08:35)
[2016-12-10] MEDS: DIVALPROEX ER 250 MG TAB.ER.24H PO SCH (08:35)
[2016-12-10] MEDS: PHENYTOIN 50 MG CHEWABLE PO SCH (08:35)
[2016-12-10] MEDS: METOPROLOL TARTRATE 50 MG TAB PO SCH ×2 (08:35→19:59)
[2016-12-10] MEDS: SENNOSIDES-DOCUSATE SODIUM 1 EACH TAB PO SCH (08:35)
[2016-12-10] MEDS: LISINOPRIL 10 MG TAB PO SCH (08:35)
[2016-12-10] MEDS: DOCUSATE 100 MG CAP PO SCH ×2 (08:35→19:59)
[2016-12-10] MEDS: ENOXAPARIN 40 MG/0.4 ML SYRINGE SQ SCH ×2 (08:36→19:58)
[2016-12-10] MEDS: PHENYTOIN SODIUM EXTENDED 100 MG CAP PO SCH ×2 (08:36→19:59)
[2016-12-10] MEDS: LEVOTHYROXINE 50 MCG TAB PO SCH (08:37)
--- NOTE | 2016-12-10 12:47 | PN ---
CHIEF COMPLAINT: Re-evaluation. HISTORY OF PRESENT ILLNESS: An 81-year-old female who was admitted to the hospital with increased obtundation and evidence suggestive of urinary tract infection with sepsis and dehydration. The patient has history of advanced Parkinson's and associated dementia. The patient also has significant physical debility. She has had a previous left hip fracture with ORIF. She has history of paroxysmal atrial fibrillation and previous CVA. The patient is on anticoagulation. REVIEW OF SYSTEM: NEURO: Has some headache. Denies dizziness. CARDIAC: Denies chest pain. RESPIRATORY: Denies shortness of breath. GI: No reported nausea, vomiting, poor inability to swallow. : No symptoms as an IDC. EXTREMITIES: Patient is curled up in bed. Only limited available from the patient. CONSTITUTIONAL: ( ). PHYSICAL EXAMINATION: Elderly female appears at present, fairly comfortable in no distress. Vital signs revealed temperature 98.5, pulse 89, respirations 20, blood pressure 115/70, pulse ox of 95% on room air. HEENT: Normocephalic. NECK: No JVD, oral cavity is dry. Chest is clear to auscultation. CARDIAC: Distant heart sounds S1, S2 with no gallops, systolic murmur 2/6 left sternal border, irregularly irregular rhythm. Abdomen is soft. Bowel sounds are active. EXTREMITIES: Reveal no edema. Left heel slight bruise, medially. Patient is curled up in bed in the position. No sacral decub noted. Urine output is low. Laboratory evaluation reveals white count is down to 13.4 , hemoglobin is 10.6, platelets 237. BUN is 26, creatinine is 0.08 improved. Electrolytes, sodium 145, potassium 4.0, chloride 118, CO2 is 19, thyroid function is in normal range. Urine analysis revealed numerous WBC's and proteus mirabilis in the urine culture. ASSESSMENT: 1. Urinary tract infection with sepsis. 2. Metabolic encephalopathy. 3. Dehydration. 4. Debility. 5. Parkinson's. 6. Paroxysmal atrial fibrillation. 7. Mild to moderate dementia. PLAN: Continue present medical regimen with IV antibiotics and hydration. The patient's bacteremia sensitive, ( ) patient is on. Prognosis remains guarded. She is not able to take medications, her medications will be kept on hold and will give the patient Lovenox in place of the Xarelto. Other oral medications since she is not swallowing well will be put on hold. Patient's condition is discussed with the patient's family who are all at bedside. Prognosis remains guarded. MTDD
[2016-12-10] MEDS: SODIUM CHLORIDE 0.9% 1,000 ML IV SCH ×2 (15:43→19:59)
[2016-12-10] MEDS: LEVOFLOXACIN 250MG-D5W PMX 250 MG in DEXTROSE/WATER 1 50ML.BAG IVPB SCH (19:58)
[2016-12-10] MEDS: traZODone HCL 50 MG TAB PO SCH (19:59)
[2016-12-10] MEDS: FLUCONAZOLE 100 MG TAB PO SCH (19:59)
[2016-12-11] MEDS: MEGESTROL 400 MG/10 ML CUP PO SCH ×2 (06:33→16:55)
[2016-12-11] MEDS ORDERED: METOPROLOL TARTRATE 5 MG/5 ML VIAL IVP ONE (09:08)
[2016-12-11] MEDS: DIGOXIN 250 MCG/ML 2 ML AMP IVP SCH (09:49)
[2016-12-11] MEDS: FAMOTIDINE 20 MG TAB PO SCH (09:50)
[2016-12-11] MEDS: DIVALPROEX ER 250 MG TAB.ER.24H PO SCH (09:50)
[2016-12-11] MEDS: FLUCONAZOLE 100 MG TAB PO SCH (09:50)
[2016-12-11] MEDS: SERTRALINE 100 MG TAB PO SCH (09:50)
[2016-12-11] MEDS: LEVOTHYROXINE 50 MCG TAB PO SCH (09:50)
[2016-12-11] MEDS: DOCUSATE 100 MG CAP PO SCH ×2 (09:50→20:05)
[2016-12-11] MEDS: METOPROLOL TARTRATE 50 MG TAB PO SCH ×2 (09:50→20:05)
[2016-12-11] MEDS: LISINOPRIL 10 MG TAB PO SCH (09:50)
[2016-12-11] MEDS: CARBIDOPA-LEVODOPA 25-100 MG 1 EACH TAB PO SCH ×3 (09:50→20:05)
[2016-12-11] MEDS: SENNOSIDES-DOCUSATE SODIUM 1 EACH TAB PO SCH (09:50)
[2016-12-11] MEDS: PHENYTOIN SODIUM EXTENDED 100 MG CAP PO SCH ×2 (09:50→20:06)
[2016-12-11] MEDS: PANTOPRAZOLE 40 MG/10 ML VIAL IVP SCH (10:22)
[2016-12-11] MEDS: ACETAMINOPHEN TAB 325 MG TAB PO PRN ×2 (10:33→16:53)
--- NOTE | 2016-12-11 12:58 | PN ---
CHIEF COMPLAINT: Reevaluation. HISTORY OF PRESENT ILLNESS: This 81-year-old female was admitted to the hospital with a urinary tract infection with sepsis and dehydration. The patient also had associated obtundation secondary to metabolic encephalopathy due to dehydration and sepsis and underlying dementia. The patient is more alert today. She has history of Parkinson's. She is able to swallow today. The patient's medications were orally resumed. She recognizes show I am. The patient is cooperative. She continues to stay in the position. REVIEW OF SYSTEMS: NEURO: Denies any headaches. PSYCH: Cooperative. CARDIAC: Denies chest pain. RESPIRATORY: Denies shortness of breath. No reported cough. GI: No reported nausea, vomiting, abdominal pain, diarrhea. : No reported hematuria, has an IDC with improving urine output. CONSTITUTIONAL: No further fever after an episode yesterday afternoon. Pleasant female, vital signs reveal patient is afebrile, temperature is 75, respirations 16, blood pressure 113/55, pulse ox is 93% on 2 L. HEENT: Normocephalic. NECK; Decreased range of motion, no JVD. Face reveals some periorbital puffiness. Chest is clear to auscultation. CARDIAC: Normal S1, S2 with no gallops, irregular rhythm, systolic murmur 2/6 left sternal border. Heart rate is controlled. Abdomen is soft. Extremities reveal no edema. Left heel slight ecchymosis. Neurologically, contracted posture with generalized stiffness. More alert and cooperative today. Laboratory assessment: CBC which revealed a white count down to 12.9, hemoglobin is 10.2, platelets 256. Electrolytes are essentially normal. Sodium 146, potassium 4.4, chloride 117, ( ) down to 20, BUN down to 21, creatinine 0.7. Urine culture had proteus mirabilis. ASSESSMENT: 1. Urinary tract infection with sepsis. 2. Dehydration, improving. 3. Metabolic encephalopathy, improving. 4. Dementia. 5. Parkinson's. 6. Coronary artery disease. 7. Atrial fibrillation. 8. History of seizure disorder. PLAN: The patient is stable. Continue present medical regimen. Patient's oral medications have been resumed. The patient's diet to be advanced as tolerated. Continue present medications. Potential discharge home by Friday. [facility]
[2016-12-11] MEDS: RIVAROXABAN 15 MG TAB PO SCH (13:47)
[2016-12-11] MEDS: PHENYTOIN 50 MG CHEWABLE PO SCH (13:47)
[2016-12-11] MEDS: traZODone HCL 50 MG TAB PO SCH (20:05)
[2016-12-11] MEDS: SODIUM CHLORIDE 0.9% 1,000 ML IV SCH ×2 (20:05→23:16)
[2016-12-11] MEDS: LEVOFLOXACIN 250MG-D5W PMX 250 MG in DEXTROSE/WATER 1 50ML.BAG IVPB SCH (20:14)
[2016-12-12] MEDS: MEGESTROL 400 MG/10 ML CUP PO SCH ×2 (06:22→16:04)
[2016-12-12 06:44] LABS: CH 32.5; CHCM 33.3; HCT 30.6 % (34.0-46.0); HDW 2.58; HGB 10.2 gm/dL (11.4-16.0); MCH 32.7 pg (25.0-35.0); MCHC 33.3 g/dL (31.0-37.0); MCV 98.4 fL (80.0-100.0); RBC 3.11 m/uL (3.80-5.40); RDW 13.4 % (11.5-15.5)
[2016-12-12 07:06] LABS: ALT 26 U/L (9-52); AST 26 U/L (14-36); Alkaline Phosphatase 65 U/L (38-126); Anion Gap 9 mmol/L; Blood Urea Nitrogen 10 mg/dL (7-17); Calcium 7.9 mg/dL (8.4-10.2); Carbon Dioxide 19 mmol/L (22-30); Chloride 113 mmol/L (98-107); Glucose 68 mg/dL (74-99); Non-African American GFR(MDRD) >60 (>60 ml/min/1.73 sqM); Potassium 3.5 mmol/L (3.5-5.1); Sodium 141 mmol/L (137-145); Total Bilirubin 0.3 mg/dL (0.2-1.3); Total Protein 5.1 g/dL (6.3-8.2)
[2016-12-12] MEDS ORDERED: FUROSEMIDE 10 MG/ML 2 ML VIAL IV STA ×2 (08:13→16:27)
[2016-12-12] MEDS: LISINOPRIL 10 MG TAB PO SCH (09:08)
[2016-12-12] MEDS: FAMOTIDINE 20 MG TAB PO SCH (09:08)
[2016-12-12] MEDS: CARBIDOPA-LEVODOPA 25-100 MG 1 EACH TAB PO SCH ×3 (09:08→21:07)
[2016-12-12] MEDS: PHENYTOIN SODIUM EXTENDED 100 MG CAP PO SCH ×2 (09:09→21:07)
[2016-12-12] MEDS: DIGOXIN 250 MCG/ML 2 ML AMP IVP SCH (09:10)
[2016-12-12] MEDS: LEVOTHYROXINE 50 MCG TAB PO SCH (09:10)
[2016-12-12] MEDS: SENNOSIDES-DOCUSATE SODIUM 1 EACH TAB PO SCH (09:10)
[2016-12-12] MEDS: PANTOPRAZOLE 40 MG/10 ML VIAL IVP SCH (09:11)
[2016-12-12] MEDS: METOPROLOL TARTRATE 50 MG TAB PO SCH ×2 (09:12→21:07)
[2016-12-12] MEDS: SERTRALINE 100 MG TAB PO SCH (09:12)
[2016-12-12] MEDS: DIVALPROEX ER 250 MG TAB.ER.24H PO SCH (09:16)
[2016-12-12] MEDS: DOCUSATE 100 MG CAP PO SCH ×2 (09:17→21:07)
[2016-12-12] MEDS: SODIUM CHLORIDE 0.9% 1,000 ML IV SCH (09:17)
[2016-12-12] MEDS: FLUCONAZOLE 100 MG TAB PO SCH (11:33)
--- NOTE | 2016-12-12 14:10 | XR ---
EXAMINATION TYPE: XR chest 1V portable DATE OF EXAM: 12/12/2016 COMPARISON: 12/07/2016 HISTORY: Wheezing today TECHNIQUE: Single frontal view of the chest is obtained. FINDINGS: There is a new right peripheral pleural-based density, likely relating to a loculated mode rate right pleural effusion. Moderate pulmonary vascular congestion and interstitial edema are also n oted as well as a layering small left pleural effusion with associated compressive atelectasis. Heart remains mildly enlarged, similar to the prior exam. Osseous demineralization is noted as well as an old healed right distal clavicular fracture. Mild degenerative changes of the thoracic spine are seen . IMPRESSION: 1. New probable loculated right moderate pleural effusion and small layering left pleural effusion wi th associated bibasilar compressive atelectasis. 2. Mild pulmonary vascular congestion and interstitial edema, that could be related to cardiogenic or noncardiogenic fluid overload.
--- NOTE | 2016-12-12 15:12 | PN ---
PROGRESS NOTE Date of Service: CHIEF COMPLAINT: Reevaluation. HISTORY OF PRESENT ILLNESS: This 81-year-old female was admitted in the hospital with fever and altered mental status. The patient has evidence of urinary tract infection with sepsis. She has dehydration, which is improved. The patient has underlying history of seizure disorder and Parkinson's. She also has paroxysmal atrial fibrillation. Actually, she is more alert and was able to take her medications yesterday. REVIEW OF SYSTEMS: Limited. Neuro: Denies headaches. Psych: Cooperative. Cardiac: Denies chest pain. Respiratory: Denies shortness of breath. GI: No reported nausea or vomiting. Appetite is fair. No diarrhea reported. : No reported symptoms. Has IDC. EXTREMITIES: No pain. Constitutional: No fever or chills. PHYSICAL EXAMINATION: Elderly female, appears in no acute distress. Vital signs reveals temperature was 97.6, pulse 98, respirations 18, blood pressure 148/74, pulse of 98% on 2 L. HEENT: Normocephalic. NECK: Supple. No JVD. CHEST: Clear to auscultation. Cardiac: Normal S1, S2 with no gallops. Systolic murmur 2/6 left sternal border. ABDOMEN: Soft. Bowel sounds present. Extremities: No edema. Left heel mild ecchymosis, suspect pressure injury. ASSESSMENT: 1. Urinary tract infection with sepsis. 2. Dehydration, improved. 3. Paroxysmal atrial fibrillation. 4. Dementia. 5. Parkinsonism. PLAN: Continue present medical regimen. Adequate protection being done to prevent pressure on the heel. Patient's condition is guarded. Prognosis is guarded. Son not available to discuss care. We will check again on him tomorrow. Meanwhile, labs in the morning. Continue present management. MMODL / IJN: [id number] /
[2016-12-12] MEDS: PHENYTOIN 50 MG CHEWABLE PO SCH (16:04)
[2016-12-12] MEDS: RIVAROXABAN 15 MG TAB PO SCH (16:04)
[2016-12-12] MEDS: ACETAMINOPHEN TAB 325 MG TAB PO PRN (17:24)
[2016-12-12] MEDS: LEVOFLOXACIN 250MG-D5W PMX 250 MG in DEXTROSE/WATER 1 50ML.BAG IVPB SCH (21:06)
[2016-12-12] MEDS: traZODone HCL 50 MG TAB PO SCH (21:07)
[2016-12-13] MEDS ORDERED: POTASSIUM CHLORIDE 20 MEQ, LIDOCAINE 2% INJ 20 MG in SODIUM CHLORIDE 0.9% 100 ML IVPB SCH ×3
[2016-12-13] MEDS: POTASSIUM CHLORIDE 10 MEQ, LIDOCAINE 2% INJ 10 MG in SODIUM CHLORIDE 0.9% 100 ML IVPB SCH ×4 (00:19→05:15)
[2016-12-13] MEDS: SODIUM CHLORIDE 0.9% 1,000 ML IV SCH ×3 (03:27→15:01)
[2016-12-13] MEDS: MEGESTROL 400 MG/10 ML CUP PO SCH (07:04)
[2016-12-13] MEDS: LISINOPRIL 10 MG TAB PO SCH (08:36)
[2016-12-13] MEDS: SENNOSIDES-DOCUSATE SODIUM 1 EACH TAB PO SCH (08:36)
[2016-12-13] MEDS: CARBIDOPA-LEVODOPA 25-100 MG 1 EACH TAB PO SCH ×2 (08:36→15:02)
[2016-12-13] MEDS: PHENYTOIN SODIUM EXTENDED 100 MG CAP PO SCH (08:36)
[2016-12-13] MEDS: DOCUSATE 100 MG CAP PO SCH (08:37)
[2016-12-13] MEDS: METOPROLOL TARTRATE 50 MG TAB PO SCH (08:37)
[2016-12-13] MEDS: FAMOTIDINE 20 MG TAB PO SCH (08:37)
[2016-12-13] MEDS: SERTRALINE 100 MG TAB PO SCH (08:37)
[2016-12-13] MEDS: DIGOXIN 250 MCG/ML 2 ML AMP IVP SCH (08:37)
[2016-12-13] MEDS: FLUCONAZOLE 100 MG TAB PO SCH (08:37)
[2016-12-13] MEDS: LEVOTHYROXINE 50 MCG TAB PO SCH (08:46)
[2016-12-13] MEDS: PANTOPRAZOLE 40 MG/10 ML VIAL IVP SCH (08:46)
[2016-12-13] MEDS: DIVALPROEX ER 250 MG TAB.ER.24H PO SCH (08:46)
[2016-12-13 13:16] VITALS: RESP 16
[2016-12-13 14:08] VITALS: BMI 14.1
[2016-12-13] MEDS ORDERED: ACETAMINOPHEN TAB 325 MG TAB PO PRN (14:35)
[2016-12-13] MEDS ORDERED: guaiFENesin SYRUP 100MG/5ML 200 MG/10 ML CUP PO PRN (14:35)
[2016-12-13 14:58] VITALS: BP 143/65; PULSE 65; TEMP 97.5
[2016-12-13] MEDS: PHENYTOIN 50 MG CHEWABLE PO SCH (15:02)
--- NOTE | 2016-12-13 16:04 | PN ---
PROGRESS NOTE CHIEF COMPLAINT: Re-evaluation. HISTORY OF PRESENT ILLNESS: 81-year-old female admitted to the hospital with fever and altered mental status. The patient was noted to have evidence of urinary tract infection with sepsis. Treated with antibiotics. The patient has Proteus mirabilis in the urine. The patient's overall condition is improved. Mental status is improved back to her baseline. She does have some dementia as well as Parkinson's. The patient has a history of paroxysmal atrial fibrillation and previous cardiac failure. REVIEW OF SYSTEMS: Neurological: Denies headache. Psych: Anxiety. Cardiac: No angina. RESPIRATORY: Denies shortness of breath. Does have chest pain. No cough. She has some audible wheeze. GI: No nausea, vomiting. Appetite fair. : No symptoms of dysuria or hematuria, has IDC. Extremities: No pain. Left heel stable. CONSTITUTIONAL: No fever, chills. PHYSICAL EXAMINATION: Elderly female at present in no distress. She does have some audible wheezing. Temperature 98.7, pulse 80, respirations 16, blood pressure 170/72, pulse ox 97% on 2 L. HEENT: Normocephalic. Neck no JVD. Chest, decreased air flow at the right base. Some expiratory wheeze appreciated. Cardiac distant heart sounds, S1, S2 with no gallops. A systolic murmur 2/6 left sternal border. Rhythm is irregular. ABDOMEN: Soft. Bowel sounds present. Extremities: No edema. Neurologic: Drowsy, arousable. Does move upper extremities adequately. LABORATORY DATA: Chest x-ray reveals right side pleural effusion, moderate vascular congestion. Also small left effusion. CBC revealed white count back to 9.0. Electrolytes reveal potassium 3.5. BUN 10, creatinine 0.6. Albumin 2.5. ASSESSMENT: 1. Congestive cardiac failure secondary to diastolic dysfunction. 2. Urinary tract infection with sepsis. 3. Anemia. 4. Decreased nutritional status. 5. Parkinson's. 6. Dementia. PLAN: The patient is stable. Continue with medical management. The patient is in no respiratory distress but because of the audible wheeze, she will be given Lasix. Meanwhile continue with the medications. IV fluids have been decreased. The patient's prognosis remains guarded. Patient's son is not available again today. I will catch up with him later. Possible discharge home in the next 24-48 hours. MMODL / IJN: [id number] /
[2016-12-19] MEDS ORDERED: LEVOFLOXACIN 250 MG TAB PO SCH (09:00)
== END 2016-12-13 17:44 | disposition hospice, home (50) | DRG 871 ==
LOC: EC 19:44 → 6SEL 22:27
PROVIDERS: ADMIT Internal Medicine; ATTEND Internal Medicine
DX: A41.9 Sepsis, unspecified organism (principal); G93.41 Metabolic encephalopathy; N17.9 Acute kidney failure, unspecified; E87.2 Acidosis; I11.0 Hypertensive heart disease with heart failure; G20 Parkinson's disease; F03.90 Unspecified dementia, unspecified severity, without behavioral disturbance, psychotic disturbance, mood disturbance, and anxiety; E86.0 Dehydration; I48.0 Paroxysmal atrial fibrillation; I50.32 Chronic diastolic (congestive) heart failure; N39.0 Urinary tract infection, site not specified; F32.9 Major depressive disorder, single episode, unspecified; D64.9 Anemia, unspecified; E03.9 Hypothyroidism, unspecified; E78.5 Hyperlipidemia, unspecified; F41.9 Anxiety disorder, unspecified; G40.909 Epilepsy, unspecified, not intractable, without status epilepticus; I25.10 Atherosclerotic heart disease of native coronary artery without angina pectoris; I48.2 Chronic atrial fibrillation; K21.9 Gastro-esophageal reflux disease without esophagitis; M19.90 Unspecified osteoarthritis, unspecified site; M81.0 Age-related osteoporosis without current pathological fracture; Z79.01 Long term (current) use of anticoagulants; Z79.899 Other long term (current) drug therapy; Z86.73 Personal history of transient ischemic attack (TIA), and cerebral infarction without residual deficits; Z88.0 Allergy status to penicillin; Z91.81 History of falling; Z88.2 Allergy status to sulfonamides
CPT/HCPCS: 36415; 51701; 71010; 71020; 80048; 80053; 80164; 80185; 81001; 82550; 82553; 83605; 84443; 84484; 85025; 85027; 85610; 85730; 87040; 87077; 87086; 87186; 93005; 96361; 96365; 96375; 99285